=== PATIENT | female | born 1990 | race Caucasian/White ===

== ENCOUNTER 2017-04-04 12:41 | Emergency (ER) | END 2017-04-04 14:57 | disposition left against medical advice (07) | DX: Z53.21 Procedure and treatment not carried out due to patient leaving prior to being seen by health care provider (principal) ==

== ENCOUNTER 2017-04-04 23:22 | Emergency (ER) | payer SELFPAY ==
[~2017-04-04] VITALS: Ht 162.6 cm; Wt 75.5 kg
[2017-04-04 23:29] VITALS: Ht 162.6 cm; Wt 75.5 kg
[2017-04-05 01:13] LABS: CANNABINOIDS Negative (NEGATIVE)
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
[2017-04-05 01:31] LABS: BARBITURATES Negative (NEGATIVE); BENZODIAZEPINES Negative (NEGATIVE); COCAINE Positive (NEGATIVE); OPIATES Negative (NEGATIVE)
== END 2017-04-05 01:55 | disposition home or self-care (01) ==
LOC: FTE 23:22
DX: Z02.83 Encounter for blood-alcohol and blood-drug test (principal); R78.2 Finding of cocaine in blood
CPT/HCPCS: 80307; 99283